=== PATIENT | female | born 1975 | race Caucasian/White ===

== ENCOUNTER 2024-02-01 22:19 | Emergency (ER) | payer BC, SELFPAY ==
[2024-02-01 22:21] VITALS: BP 110/76
--- NOTE | 2024-02-02 00:27 | ED.MUSCINJ ---
HPI-Injury
General
Chief Complaint: Musculo-Skeletal Complaint
Source: patient
Exam Limitations: none
Time Seen by Provider: 02/02/24 00:09
Nursing documentation reviewed up to this point in time: agreed with
Travel History
Have you had any contact with someone who has COVID-19?: No
Do you have any symptoms of coronavirus? Fever > 100 degrees, chills, cough, shortness of breath, sore throat, loss of taste or smell, muscle aches, or headache?: No
History of Present Illness-Injury
Is this injury a work related problem?: No
Is pt an associate of [facility]?: No
Initial Injury comments:
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
Past History
Past History
ED Past Medical History: Arrthythmia (ST), Hypothyroidism and Psychiatric (Anxiety)
ED Past Surgical History: (x 1) and Orthopedic (L clavicle fx)
Social History
Tobacco: Non-smoker
Alcohol: Occasional
Drug: None
Personal:
Living: with family
Employment: Employed
Family History
Family History: Other (Noncontributory); Negative Early CAD or Sudden
Review of Systems
Review of Systems
All Other Systems: Not applicable
Musculoskeletal: Reports joint pain and joint swelling; Denies neck pain
Neurological: Reports no symptoms
Endocrine: Reports no symptoms
Hematologic/Lymphatic: Reports bruising
Phy Exam
Physical Exam
Physical Exam:
Physical Exam
General: no apparent distress, not acutely ill
Neck: No posterior neck
Lungs: no acute respiratory distress.
Neuro: alert and oriented. no focal neurological deficits
Skin: no rash
Psychiatric: well kept. interactive and cooperative
Extremities: Ecchymosis right proximal humerus able to extend her elbow strong radial pulse
Injury Course
Orders/Labs/Results
Orders:
Orders
02/01/24 22:24
Humerus, Right 2 Views [CR Humerus - Right Min 2 View*] Urgent
Comment:
Reason For Exam: FALL
02/02/24 00:22
Sling Right-Treatment ONCE
Ibuprofen [Motrin] 600 mg PO NOW STA
MDM/Problems Addressed
Differential Diagnosis Includes:
Contusion strain fracture
MDM/Problems Addressed:
Arm pain
*Radiology
Radiology exam reviewed: radiology read reviewed
*Critical Care Note
Total Time (30-74mins, 75-104mins- exclusive of procedures): Not Applicable
Update Note
Update Note:
Patient well-appearing, appears to be a candidate for outpatient follow-up she seen [facility] orthopedics given a sling and ibuprofen
ED Attending Note
-
Portions of this chart may have been created with voice recognition software.� Occasional wrong word or��sound alike� substitutions may have occurred due to the inherent limitations of voice recognition software.
Discharge Plan
Departure
Patient Disposition: Home (Routine Discharge)
Date of Disposition: 02/02/24
Time of Disposition: 00:22
Patient with high blood pressure during this ER visit?: No
Condition: Good
Covid-19: Not Applicable
Discharge Problem:
Fracture, humerus
Instructions: Ibuprofen, Upper Arm Fracture, How to Use a Shoulder Sling
Prescriptions:
New
ibuprofen 600 mg tablet
600 mg PO Q6H PRN (Reason: Pain) Qty: 20 0RF
Referrals:
Anum Estrada MD [Family Provider] -
Yossi Parsons MD [Active] - Next open appointment
Interventions
Interventions:
*Risk Screen - Suicide Last Done: 02/01/24 22:21
*General Assessment Last Done: 02/02/24 00:02
*Neglect/Abuse Screening Last Done: 02/01/24 22:21
*ED COVID-19 Vaccine History Last Done: 02/02/24 00:04
ED-Musculoskeletal Assessment Last Done: 02/02/24 00:02
[2024-02-02] MEDS: MOTRIN 600 MG PO (00:34)
[2024-02-02 00:38] VITALS: BP 106/73
[2024-02-02 00:39] VITALS: BP 106/73
== END 2024-02-02 00:39 | disposition home or self-care (01) ==
LOC: EMR 22:19
PROVIDERS: EMERGENCY PHYSICIAN Emergency Medicine; FAMILY PHYSICIAN Student in an Organized Health Care Education/Training Program
DX: S42.211A Unspecified displaced fracture of surgical neck of right humerus, initial encounter for closed fracture (principal); W19.XXXA Unspecified fall, initial encounter
CPT/HCPCS: 99283; 73060

== ENCOUNTER → 2024-03-11 13:26 | Outpatient (REF) | payer BC, SELFPAY | LOC: HWRAD 13:26 | PROVIDERS: ATTENDING PHYSICIAN Student in an Organized Health Care Education/Training Program | DX: M85.80 Other specified disorders of bone density and structure, unspecified site (principal); Z87.81 Personal history of (healed) traumatic fracture | CPT/HCPCS: 77080 ==

== ENCOUNTER → 2025-04-27 09:14 | Outpatient (REF) | payer BC, SELFPAY | LOC: RCS 09:14 | PROVIDERS: ATTENDING PHYSICIAN Student in an Organized Health Care Education/Training Program | DX: I49.9 Cardiac arrhythmia, unspecified (principal) | CPT/HCPCS: 93225; 93226 ==

== ENCOUNTER → 2025-05-03 16:08 | Outpatient (REF) | payer BC, SELFPAY | LOC: RCS 16:08 | PROVIDERS: ATTENDING PHYSICIAN Student in an Organized Health Care Education/Training Program | DX: I49.9 Cardiac arrhythmia, unspecified (principal) | CPT/HCPCS: 93306 ==

== ENCOUNTER 2025-10-25 11:07 | Emergency (ER) | payer BC, SELFPAY ==
[2025-10-25 11:18] VITALS: BP 133/86
--- NOTE | 2025-10-25 13:30 | ED.GENMED ---
History of Present Illness
General
Chief Complaint: Musculo-Skeletal Complaint
Source: patient
Exam Limitations: none
Time Seen by Provider: 10/25/25 12:47
Nursing documentation reviewed up to this point in time: agreed with
History of Present Illness
History of Present Illness:
Patient is a 50-year-old female presenting to the emergency department with concerns of left knee pain after horseback riding prior to arrival. Claims that initially seemed to twist her knee then somewhat fell off the horse injuring her knee. Was
immediately able to walk and get back on the horse without difficulty. Pain is worsened over the past few hours. Any numbness or weakness.
Past History
Past History
ED Past Medical History: Arrthythmia (ST), Hypothyroidism and Psychiatric (Anxiety)
ED Past Surgical History: (x 1) and Orthopedic (L clavicle fx)
Social History
Tobacco: Non-smoker
Alcohol: Occasional
Drug: None
Personal:
Living: with family
Employment: Employed
Family History
Family History: Other (Noncontributory); Negative Early CAD or Sudden
Review of Systems
Review of Systems
Allergies reviewed?: Yes
All Other Systems: ROS reviewed and negative except as documented in HPI and ROS
Phy Exam
Physical Exam
Physical Exam:
GENERAL: Alert , in no apparent distress
EYE: pupils equal and reactive
NECK: Supple, no significant adenopathy.
ENT: o/p clr, mmm.
CARDIAC: Regular rate and rhythm .
LUNGS: Clear breath sounds bilaterally, no acute respiratory distress, no wheezes/rales/rhonchi
ABDOMEN: Soft, without focal tenderness, no r/g, no cvat
NEUROLOGICAL: Alert and oriented, no focal neuro deficits
SKIN: Warm and dry, skin intact.
MUSCULOSKELETAL: Good range of motion of the left knee good strength. No joint laxity. Mild anterior lateral aspect of the knee. No edema, well perfused.
PSYCH: Normal and appropriate interaction.
Course
Orders/Labs/Results
Orders:
Orders
10/25/25 11:21
Knee, Left 4 or More Views [CR Knee - Left 4 Or More View*] Urgent
Comment:
Reason For Exam: injury
10/25/25 13:26
Knee Immobilizer Left-Treatmen ONCE
Vital Signs
Initial and Last Documented VS:
Initial Vital Signs
Temp Pulse Resp BP Pulse Ox
98.5 F 110 20 133/86 100
10/25/25 11:18 10/25/25 11:18 10/25/25 11:18 10/25/25 11:18 10/25/25 11:18
Last Documented Vital Signs
Temp Pulse Resp BP Pulse Ox
98.5 F 110 20 133/86 100
10/25/25 11:18 10/25/25 11:18 10/25/25 11:18 10/25/25 11:18 10/25/25 13:31
MDM/Problems Addressed
MDM/Problems Addressed:
50-year-old female presenting to the emergency department today with concerns of left-sided knee pain after horseback riding accident. She has been able to ambulate. Was able to immediately ambulate at the scene. No significant swelling no
redness no warmth good range of motion. X-ray without signs of fracture. Patient advised for close follow-up with Ortho for any ongoing symptoms otherwise given knee brace
*Pulse Oximetry
SaO2: 100
Oxygen Mode of Delivery: Room air
Patient hypoxic: no (100)
*Critical Care Note
Total Time (30-74mins, 75-104mins- exclusive of procedures): Not Applicable
ED Attending Note
-
Portions of this chart may have been created with voice recognition software.� Occasional wrong word or��sound alike� substitutions may have occurred due to the inherent limitations of voice recognition software.
Discharge Plan
Departure
Patient Disposition: Home (Routine Discharge)
Date of Disposition: 10/25/25
Time of Disposition: 13:30
Patient with high blood pressure during this ER visit?: No
Condition: Good
Covid-19: Not Applicable
Discharge Problem:
Left knee sprain
Instructions: Sprain (DC)
Prescriptions:
No Action
ibuprofen 600 mg tablet
600 mg PO Q6H PRN (Reason: Pain) Qty: 20 0RF
Referrals:
Jase Fletcher MD [Active, Orthopedics] - Follow up in 10 days
Anum Estrada MD [Family Provider, Internal Medicine]
Activity Restrictions/Additional Instructions:
You came to the emergency department today with concerns of a knee injury. Please feel close with orthopedics. In the meantime please rest ice compress and elevate and return for any worsening, new or concerning symptoms.
Interventions
Interventions:
[facility] Risk Assessment Tool Last Done: 10/25/25 12:48
ED-Musculoskeletal Assessment Last Done: 10/25/25 12:46
Discharge Date and Time
Print Language: HEBREW
--- NOTE | 2025-10-25 14:03 | EDRN ---
Disc made of pt's x-ray and given to her
== END 2025-10-25 14:04 | disposition home or self-care (01) ==
LOC: EMR 11:07
PROVIDERS: EMERGENCY PHYSICIAN Student in an Organized Health Care Education/Training Program; FAMILY PHYSICIAN Student in an Organized Health Care Education/Training Program
DX: S83.92XA Sprain of unspecified site of left knee, initial encounter (principal); V80.010A Animal-rider injured by fall from or being thrown from horse in noncollision accident, initial encounter; Y93.52 Activity, horseback riding; E03.9 Hypothyroidism, unspecified
CPT/HCPCS: 99283; 29505; 73564